=== PATIENT | female | born 1940 | race Caucasian/White ===

== ENCOUNTER → 2017-05-20 | Outpatient (CLI) | payer OTHER ==
[~2017-05-20] MED LIST: ALLERGY RELIEF180 MG PO; ALPRAZOLAM PO; AMBIEN 10 MG TA10 MG PO; ARIXTRA SQ; ASPIRIN EC81 M1 PO; BETIMOL10 ML OP; CLEOCIN HCL150 MG PO; COLACE 100 MG100 MG; COLACE100 MG PO; COZAAR 25 MG TA25 M1 PO; EVISTA PO; GLUCOPHAGE500 MG PO; HYDRALAZINE 2525 MG PO; HYDROXYZINE HCL25 M1 PO; IBUPROFEN 400400 M2 PO; IBUPROFEN 800800 M1 PO; LANTUS SC; LEVAQUIN 500 M500 M2 PO; LEVEMIR SUBQ; LISINOPRIL10 MG PO; NORCO 5-325 TA1 EACH PO; NOVALOG SQ; NOVOLOG100 UNIT/M SUBQ; NUCYNTA ER50 MG PO; OMEGA-3 FISH O1 EAC5 PO; ONDANSETRON HCL4 M2 PO; PHENERGAN 25 MG25 M1 PO; PREDNISONE 10 M10 MG PO; PREDNISONE 20 M20 M1 PO; TEARS PURE DROP15 ML OP; TOPROL XL100 MG PO; TOPROL XL25 MG PO; XANAX 0.5 MG0.5 MG PO; XARELTO15 MG PO; ZOCOR 20 MG TAB20 M1 PO; ZYRTEC10 M2 PO; [UNRECOGNIZED DRUG - OTHER]
== END ==
LOC: M.RAD 13:56
DX: Z12.31 Encounter for screening mammogram for malignant neoplasm of breast (principal); M81.0 Age-related osteoporosis without current pathological fracture; Z78.0 Asymptomatic menopausal state

== ENCOUNTER 2017-07-07 08:25 | Emergency (ER) | payer OTHER ==
[~2017-07-07] VITALS: Ht 152.4 cm; Wt 87.1 kg
[~2017-07-07 08:25] MED LIST changes: -PREDNISONE 10 M10 MG PO
[2017-07-07] MEDS ORDERED: PREDNISONE 10 M10 MG PO (09:36)
[2017-07-07 09:49] VITALS: BP 147/47
== END 2017-07-07 09:49 | disposition home or self-care (01) ==
LOC: M.ERS 08:25
DX: L50.9 Urticaria, unspecified (principal); E11.9 Type 2 diabetes mellitus without complications; Z88.1 Allergy status to other antibiotic agents; Z88.0 Allergy status to penicillin; Z91.041 Radiographic dye allergy status; Z88.8 Allergy status to other drugs, medicaments and biological substances; Z90.711 Acquired absence of uterus with remaining cervical stump; Z87.442 Personal history of urinary calculi; Z85.3 Personal history of malignant neoplasm of breast; Z79.4 Long term (current) use of insulin

== ENCOUNTER → 2017-07-16 | Outpatient (CLI) | payer OTHER ==
[~2017-07-16] MED LIST changes: +PREDNISONE 10 M10 MG PO
== END ==
LOC: M.ULTRA 10:13
DX: K80.20 Calculus of gallbladder without cholecystitis without obstruction (principal); R10.9 Unspecified abdominal pain

== ENCOUNTER 2018-02-02 11:50 | Emergency (ER) | payer OTHER ==
[~2018-02-02] VITALS: Ht 152.4 cm; Wt 89.8 kg
[2018-02-02 13:44] VITALS: BP 198/74
== END 2018-02-02 13:45 | disposition home or self-care (01) ==
LOC: M.ERS 11:50
DX: M25.511 Pain in right shoulder (principal); M79.604 Pain in right leg; W10.9XXA Fall (on) (from) unspecified stairs and steps, initial encounter; Y93.89 Activity, other specified; Y92.89 Other specified places as the place of occurrence of the external cause; Y99.8 Other external cause status; Z85.3 Personal history of malignant neoplasm of breast; E11.9 Type 2 diabetes mellitus without complications; Z96.653 Presence of artificial knee joint, bilateral; Z90.710 Acquired absence of both cervix and uterus; Z88.0 Allergy status to penicillin; Z88.1 Allergy status to other antibiotic agents; Z88.5 Allergy status to narcotic agent; Z91.041 Radiographic dye allergy status

== ENCOUNTER → 2018-06-22 | Outpatient (CLI) | payer OTHER ==
[~2018-06-22] MED LIST changes: +BACTRIM DS TAB1 EACH PO; +CORTEF 20 MG TA20 MG PO; +ZOFRAN ODT4 MG PO
== END ==
LOC: M.MRI 12:34
DX: S46.011A Strain of muscle(s) and tendon(s) of the rotator cuff of right shoulder, initial encounter (principal); S46.811A Strain of other muscles, fascia and tendons at shoulder and upper arm level, right arm, initial encounter; M19.011 Primary osteoarthritis, right shoulder; Z88.1 Allergy status to other antibiotic agents; Z88.8 Allergy status to other drugs, medicaments and biological substances; Z88.2 Allergy status to sulfonamides; Z88.0 Allergy status to penicillin; Z91.041 Radiographic dye allergy status; W19.XXXA Unspecified fall, initial encounter; Y93.89 Activity, other specified; Y92.89 Other specified places as the place of occurrence of the external cause; Y99.8 Other external cause status

== ENCOUNTER → 2019-01-12 | Outpatient (CLI) | payer OTHER ==
[~2019-01-12] VITALS: Ht 152.4 cm; Wt 85.3 kg
[~2019-01-12] MED LIST changes: +CORTEF10 MG PO; +CORTEF5 MG PO; +JARDIANCE10 MG PO; +LEVEMIR100 UNIT/1 SUBQ; +LEXAPRO 10 MG T10 M2 PO; +METFORMIN HCL500 M3 PO
[2019-01-12 10:01] LABS: HEMATOCRIT 39.8 % (37.0-47.0); HEMOGLOBIN 13.2 gm/dL (12.0-15.0); MCH 29.1 pg (26.0-34.0); MCHC 33.2 g/dL (28.0-37.0); MCV 87.7 fL (80.0-100.0); MPV 7.1 fl. (7.2-11.1); RBC 4.54 mil/uL (4.20-5.00); RDW-CV 13.9 % (10.5-14.5); WBC 5.7 thou/uL (4.0-11.0)
[2019-01-12 10:02] VITALS: BP 167/60
[2019-01-12 10:06] LABS: CALCIUM 9.1 mg/dL (8.5-10.1); CREATININE 0.8 mg/dL (0.6-1.3); POTASSIUM 3.9 mmol/L (3.5-5.1)
[2019-01-12 10:11] LABS: ALBUMIN 3.2 g/dL (3.4-5.0); TOTAL BILIRUBIN 0.4 mg/dL (<0.1-1.0); TOTAL PROTEIN 6.5 g/dL (6.4-8.2)
[2019-01-12 10:27] LABS: APTT 26.9 Seconds (25.0-31.3); PROTIME 9.8 Seconds (9.20-11.50)
[2019-01-12 11:44] VITALS: BP 141/59
[2019-01-12 11:58] VITALS: BP 144/60
[2019-01-12 12:32] VITALS: BP 146/64
== END | disposition home or self-care (01) ==
LOC: M.INT 05:22 → M.INFUS 09:00 → M.INT 09:00
PROVIDERS: Radiology Diagnostic Radiology
DX: Z45.2 Encounter for adjustment and management of vascular access device (principal); E11.9 Type 2 diabetes mellitus without complications; Z90.711 Acquired absence of uterus with remaining cervical stump; Z96.653 Presence of artificial knee joint, bilateral; Z87.442 Personal history of urinary calculi; Z85.820 Personal history of malignant melanoma of skin; Z98.890 Other specified postprocedural states; Z79.899 Other long term (current) drug therapy; Z91.040 Latex allergy status; Z88.0 Allergy status to penicillin; Z88.8 Allergy status to other drugs, medicaments and biological substances; Z85.3 Personal history of malignant neoplasm of breast; Z79.01 Long term (current) use of anticoagulants

== ENCOUNTER 2019-04-08 12:43 | Emergency (ER) | payer MEDICARE ==
[~2019-04-08] VITALS: Ht 152.4 cm; Wt 80.7 kg
[2019-04-08] MEDS ORDERED: ZOFRAN ODT4 MG SUBLING (13:30)
[2019-04-08] MEDS ORDERED: FLEXERIL PO (13:30)
[2019-04-08] MEDS ORDERED: NORCO 5-325 TA1 EAC1 PO (13:30)
[2019-04-08 15:07] VITALS: BP 135/48
== END 2019-04-08 15:13 | disposition home or self-care (01) ==
LOC: M.ERS 12:43
DX: M54.41 Lumbago with sciatica, right side (principal); E11.9 Type 2 diabetes mellitus without complications; Z85.3 Personal history of malignant neoplasm of breast; Z90.10 Acquired absence of unspecified breast and nipple; Z90.711 Acquired absence of uterus with remaining cervical stump; Z96.653 Presence of artificial knee joint, bilateral; Z87.442 Personal history of urinary calculi; Z88.0 Allergy status to penicillin; Z88.6 Allergy status to analgesic agent; Z88.8 Allergy status to other drugs, medicaments and biological substances

== ENCOUNTER → 2019-05-03 | Outpatient (CLI) | payer MEDICARE ==
[~2019-05-03] MED LIST changes: +FLEXERIL PO; +NORCO 5-325 TA1 EAC1 PO; +ZOFRAN ODT4 MG SUBLING
== END ==
LOC: M.MRI 04-15 09:15
DX: M43.16 Spondylolisthesis, lumbar region (principal); M12.88 Other specific arthropathies, not elsewhere classified, other specified site; M48.061 Spinal stenosis, lumbar region without neurogenic claudication; M51.36 Other intervertebral disc degeneration, lumbar region; M51.26 Other intervertebral disc displacement, lumbar region

== ENCOUNTER 2019-10-28 23:52 | Observation (INO) | payer MEDICARE ==
[~2019-10-28] VITALS: Ht 152.4 cm; Wt 80.7 kg
--- NOTE | ~2019-10-28 | CON ---
[address] [address] CONSULTATION Name: PASCUAL BLAIR Room: [address] M.R.#: [id number] Admission: 10/29/19 Attend Phys: Christa Denise Discharge: Date of : 40 Report #: [id number] THIS REPORT FOR: //name// cc: Marielena Manuel Linda J. DO ~ THIS REPORT FOR: //name// CC: Marielena Huang DATE OF SERVICE: 10/29/2019 CARDIOLOGY CONSULTATION HISTORY OF PRESENT ILLNESS: I was asked by Dr. Huang to see this 79-year-old white female in cardiology consultation for evaluation and treatment of chest pain. Additionally, this lady had hypertensive urgency in the ER. I believe when she first came in the ER, her blood pressure was 226/81. Subsequently, her blood pressure has come down to normal such that at 4 a.m. morning, it was 135/78. I am not sure if she has been treated for any hypertension. I believe it came down quite rapidly in the ER. She has a history of coronary artery disease and had a cardiac catheterization several years ago at this institution by Dr. Olivera and was told that she had a 50% lesion in 1 vessel. She does have essential hypertension, hypercholesterolemia, and insulin dependent diabetes mellitus. Her symptoms began yesterday during an extremely stressful day. She began having palpitations. She said she felt like her heart would skip and her heart would beat hard at times. She then yesterday evening developed chest pain that she describes as sharp, like being stabbed. It was in the left upper chest, really just below the left shoulder. The stabbings were approximately 4-5 spells. They each lasted about a second. They were sharp and stabbing. The pain was a 4-5 on a scale of 10. She came to the Emergency Room and had a second spell, which was 1 stabbing episode. It lasted a little longer about 2 seconds, but it was the same severity of 4-5 on a scale of 10. There is no radiation of the pain. There were no associated symptoms with the pain. She has not had any further symptoms. Troponins were negative x 3. A BNP was normal and her EKG was normal. PAST MEDICAL HISTORY: As described above. Additionally, she has a breast cancer with lumpectomy. She has had a partial ____. She has had bilateral knee replacement, left foot surgery with milana placement, history of kidney stones. She has had melanoma on her left leg that was resected and had a lymph node removed in the left groin and has lymphedema in that extremity. She also has a history of Heriberto disease. She is on treatment with Solu-Cortef. REVIEW OF SYSTEMS: Except as per the history of present illness and past medical history is unremarkable. Please see [place] [address] CONSULTATION Name: PASCUAL BLAIR Room: [address] Emerita Merida#: [id number] Admission: 10/29/19 Attend Phys: Christa Denise Discharge: Date of : 40 Report #: [id number] details and negatives in review of systems. Some 30 different negative points were reviewed in 14 different system categories. ALLERGIES: IODINE AND DOXYCYCLINE WELL OXYCODONE, PERCODAN, TERPHYLATE, PENICILLINS, CEFTIN. SOCIAL HISTORY: She does not smoke, drink, or use illegal drugs. She is . FAMILY HISTORY: Unremarkable. PHYSICAL EXAMINATION: GENERAL: She presents as a well-developed, well-nourished white female, in no acute distress. VITAL SIGNS: Her pulse is 70 and regular, blood pressure is 135/78, respirations 15 and regular, and temperature is 97.8. HEENT: Her head was atraumatic. Eyes clear. NECK: Supple. There is no jugular venous distention or hepatojugular reflux. Thyroid is not enlarged. There is no adenopathy. SKIN: Warm and dry. Mucous membranes are moist. LUNGS: Clear to auscultation and percussion. HEART: Revealed normal first and second heart sounds. There is soft S4. There is no S3. There are no murmurs, rubs, thrills, heaves, or gallops. PMI is nondisplaced. ABDOMEN: Soft, flat, and nontender. No palpable masses, no organomegaly. EXTREMITIES: Reveal no cyanosis or clubbing. There was 1+ lymphedema in the left lower extremity. NEUROLOGIC: The patient mentated normally, talked normally, and moved all extremities normally. LABORATORY DATA: Her EKG showed normal sinus rhythm and is a normal EKG. Her chest x-ray showed prominence of the ascending aorta and right mediastinum with aneurysmal dilatation or tortuosity of the aorta not excluded. There was a right infrahilar mass or infiltrate. There was some stranding infiltrate in the mid lung field. RECOMMENDATION: I will get a nuclear stress test and an echocardiogram. I would also get a CT of her chest with contrast and a CTA of the chest. Thank you very much for asking me to see the patient. If there are any questions, please feel free to contact me. By: [id number] [id number]. Darian Pierce MD, FACC /nt
[2019-10-29] VITALS (7 sets, daily range): BP systolic 126–226; BP diastolic 57–81
[2019-10-29 00:44] LABS: ABSOLUTE EOSINOPHILS 0.1 thou/uL (0.0-0.7); ABSOLUTE LYMPHOCYTES 2.9 thou/uL (0.8-5.3); ABSOLUTE MONOCYTES 0.6 thou/uL (0.0-1.2); ABSOLUTE NEUTROPHILS 4.4 thou/uL (1.6-8.1); BASOPHILS 0.5 %; EOSINOPHILS 1.7 %; HEMATOCRIT 38.4 % (37.0-47.0); HEMOGLOBIN 13.1 gm/dL (12.0-15.0); LYMPHOCYTES 36.1 %; MCH 29.7 pg (26.0-34.0); MCHC 34.2 g/dL (28.0-37.0); MCV 86.9 fL (80.0-100.0); MONOCYTES 7.2 %; MPV 7.7 fl. (7.2-11.1); NUCLEATED RBCS 0 /100WBC; PLATELET COUNT* 206 thou/uL (150-400); POLYS 54.5 %; RBC 4.41 mil/uL (4.20-5.00); RDW-CV 13.6 % (10.5-14.5)
[2019-10-29 00:52] LABS: CALCIUM 8.5 mg/dL (8.5-10.1); CREATININE 0.8 mg/dL (0.6-1.3); POTASSIUM 3.8 mmol/L (3.5-5.1)
[2019-10-29 01:03] LABS: ALBUMIN 3.4 g/dL (3.4-5.0); MAGNESIUM 1.5 mg/dL (1.8-2.4); TOTAL BILIRUBIN 0.4 mg/dL (<0.1-1.0); TOTAL PROTEIN 6.6 g/dL (6.4-8.2)
[2019-10-29] MEDS ORDERED: CORTEF5 MG PO (06:17)
[2019-10-29] MEDS ORDERED: CORTEF10 MG PO (06:18)
[2019-10-29] MEDS ORDERED: LEVEMIR100 UNIT/1 SUBQ ×2 (06:21)
[2019-10-29] MEDS ORDERED: IBUPROFEN 400400 M1 PO (06:25)
[2019-10-29] MEDS ORDERED: ALLEGRA ALLERG180 MG PO (06:26)
[2019-10-30] VITALS: BP 116/60
[2019-10-30 04:00] VITALS: BP 147/73
[2019-10-30 08:00] VITALS: BP 172/79
[2019-10-30 13:50] VITALS: BP 151/73
[2019-10-30 20:24] VITALS: BP 153/60
[2019-10-31] VITALS: BP 152/68
[2019-10-31 04:00] VITALS: BP 134/68
[2019-10-31 08:00] VITALS: BP 208/85
[2019-10-31] MEDS ORDERED: LEVAQUIN 500 M500 M3 PO (08:58)
[2019-10-31] MEDS ORDERED: ASA81BEC PO (08:58)
--- NOTE | 2019-10-31 13:43 | 2DMMODE ---
[place] [address] 2 D/M-MODE ECHOCARDIOGRAM Name: PASCUAL BLAIR Room: [address] TejalRBetito#: [id number] Admission: 10/29/19 Attend Phys: Marcos Huang Discharge: Date of : 40 Date of Service: 10/31/19 1343 Report #: [id number] THIS REPORT FOR: cc: Marielena Manuel,Marielena Schwarz,Aramis Toure MD [facility] ~ APPROVED REPORT Study performed: 10/31/2019 12:18:32 EXAM: Comprehensive 2D, Doppler, and color-flow Echocardiogram Patient Location: In-Patient Room #: 209 Status: routine BSA: 1.78 HR: 56 bpm BP: 134/68 mmHg Rhythm: NSR Other Information Study Quality: Good Indications Chest Pain Hypertension/HDD 2D Dimensions IVSd: 11.28 (7-11mm) LVOT Diam: 18.76 (18-24mm) LVDd: 47.30 mm PWd: 10.68 (7-11mm) Ascending Ao: 30.17 (22-36mm) LVDs: 30.02 (25-40mm) Aortic Root: 30.03 mm Volumes Left Atrial Volume (Systole) LA ESV Index: 31.80 mL/m2 Aortic Valve AoV Peak Guillaume.: 1.23 m/s AO Peak Gr.: 6.04 mmHg LVOT Max P.47 mmHg AO Mean Gr.: 3.14 mmHg LVOT Mean P.78 mmHg LVOT Max V: 1.06 m/s AO V2 VTI: 31.73 cm LVOT Mean V: 0.60 m/s ISHMAEL (VTI): 2.43 cm2 LVOT V1 VTI: 27.90 [place] [address] 2 D/M-MODE ECHOCARDIOGRAM Name: PASCUAL BLAIR Room: [address] MBetitoR.#: [id number] Admission: 10/29/19 Attend Phys: Marcos Huang Discharge: Date of : 40 Date of Service: 10/31/19 1343 Report #: [id number] Mitral Valve E/A Ratio: 1.08 MV Decel. Time: 155.40 ms MV E Max Guillaume.: 0.80 m/s MV PHT: 45.06 ms MVA (PHT): 4.88 cm2 TDI E/Lateral E': 8.89 E/Medial E': 10.00 Medial E' Guillaume.: 0.08 m/s Lateral E' Guillaume.: 0.09 m/s Pulmonary Valve PV Peak Guillaume.: 0.70 m/s PV Peak Gr.: 1.98 mmHg Left Ventricle The left ventricle is normal size. There is normal LV segmental wall motion. There is normal left ventricular wall thickness. Left ventricular systolic function is normal. The left ventricular ejection fraction is within the normal range. LVEF is 55-60%. Grade I - abnormal relaxation pattern. Right Ventricle The right ventricle is normal size. The right ventricular systolic function is normal. Atria Left atrium is mildly dilated. The right atrium size is normal. Aortic Valve The aortic valve is normal in structure. No aortic regurgitation is present. There is no aortic valvular stenosis. Mitral Valve The mitral valve is normal in structure. Mild mitral regurgitation. No evidence of mitral valve stenosis. Tricuspid Valve The tricuspid valve is normal in structure. Trace tricuspid regurgitation. Unable to assess PA pressure. Pulmonic Valve The pulmonary valve is normal in structure. Mild [place] [address] 2 D/M-MODE ECHOCARDIOGRAM Name: PASCUAL BLAIR Room: [address]#: [id number] Admission: 10/29/19 Attend Phys: Marcos Huang Discharge: Date of : 40 Date of Service: 10/31/19 1343 Report #: [id number] Great Vessels The aortic root is normal in size. IVC is normal in size and collapses >50% with inspiration. Pericardium There is no pericardial effusion. <Conclusion> The left ventricle is normal size. There is normal left ventricular wall thickness. Left ventricular systolic function is normal. The left ventricular ejection fraction is within the normal range. LVEF is 55-60%. Grade I - abnormal relaxation pattern. The right ventricle is normal size. Left atrium is mildly dilated. The right atrium size is normal. The aortic valve is normal in structure. The mitral valve is normal in structure. Mild mitral regurgitation. The tricuspid valve is normal in structure. IVC is normal in size and collapses >50% with inspiration. There is no pericardial effusion. There is normal LV segmental wall motion. <ELECTRONICALLY SIGNED> By: Aramis Trinidad MD, FACC 10/31/19 1343 1343 1343 Aramis Trinidad MD, FACC /INF
[2019-10-31 14:44] VITALS: BP 167/69
[2019-10-31 16:28] VITALS: BP 171/71
--- NOTE | 2019-10-31 17:59 | CARDNUC ---
[place] [id number] CARDIAC NUCLEAR IMAGING REPORT Name: PASCUAL BLAIR Room: [address] M.R.#: [id number] Admission: 10/29/19 Attend Phys: Marcos Huang Discharge: Date of : 40 Date of Service: 10/31/19 1759 Report #: [id number] THIS REPORT FOR: cc: Marielena Manuel,Marielena Villeda,Kimani Andrade MD [facility] ~ APPROVED REPORT Imaging Protocol: Stress Tc-99mm Only Study performed: 10/29/2019 12:00:00 Indication: Chest pain, Palpitations. Patient Location: In-Patient Room #: 209 Stress Tech: Taylor Hussein Stress Nurse: Yvrose Jim RN NM Tech:BRYANT Malhotra Ht: 5 ft 0 in Wt: 178 lbs BSA: 1.78 m2 BMI: 34.75 Medical History Medical History: Chest pain, palpitations, catherization, DM-insulin, HTN, HLD, Bilateral Knee Replacement, Left foot surgery with milana placement, CAD non obstructive, LE edema, Neuropathy. Medications: ASA 325 Mg, Cozaar, Metoprolol, Atorvastatin. Allergies: Oxycodone HCl, Cefuroxime axetil, Oxycodone Terephthalate, Penicillins, Iodine, Doxycycline. Cardiac Risk Factors: Age, Diabetes (insulin), HTN, Hyperlipidemia, palpitations. Previous Cardiac Procedures: Catherization. Pretest Chest Pain Characteristics: No chest pain Exercise History: Indeterminate Physical Disabilities: Bilateral Knee Replacement, Left foot surgery with milana, LE edema, neuropathy. Meds Held (24 hrs): Metoprolol. Pharmacologic Stress Pharmacologic stress test was performed by injecting Regadenoson 0.4 mg IV push over 10-15 seconds immediately followed by the intravenous injection of 30.0 mCi of Tc-99m Sestamibi. Time of stress injection: 1100 Date: 10/31/2019 Administration Route: IV Administration Site: [place] [address] CARDIAC NUCLEAR IMAGING REPORT Name: PASCUAL BLAIR [address] [id number] Admission: 10/29/19 Attend Phys: Marcos Huang Discharge: Date of : 40 Date of Service: 10/31/19 1759 Report #: [id number] Gated Stress SPECT was performed 40 minutes after stress injection. The images were gated to evaluate regional wall motion and calculate left ventricular ejection fraction. Prone imaging was performed. Stress Test Details Stress Test: Pharmacologic stress testing performed using 0.4 mg of regadenoson per 5 mL given IV over 10 seconds. Reason for pharmacologic stress test: Bilateral Knee Replacement, Left foot surgery with milana, LE edema, neuropathy.. HR Max Heart Rate (APMHR): 141 bpm Resting HR: 57 bpm Target HR (85% APMHR): 119 bpm Max HR Achieved: 96 bpm % of APMHR: 68 Recovery HR: 83 bpm BP Resting BP: 193/90 mmHg Max BP: 177/80 mmHg Recovery BP: 194/87 mmHg ECG Resting ECG: Sinus Rhythm Stress ECG: Sinus Rhythm ST Change: None Arrhythmia: None Recovery ECG: Sinus Rhythm Recovery ST Change: None Recovery Arrhythmia: None Clinical Reason for Termination: Completed protocol Stress Symptoms: Flushed/warmth, Stomach discomfort, Labored Breathing, Headache. Exercise duration: 00 min 00 sec Exercise capacity: 1.00 METs The patient tolerated Lexiscan infusion without significant cardiac symptom. Nurse Comments A 79 year old female inpatient presented for a sitting Lexiscan r/t chest pain and palpitations. Test well tolerated. Recovery unremarkable. Patient was escorted by staff via wheelchair to Nuclear Medicine for imaging. Patient was stable and stated [place] [id number] CARDIAC NUCLEAR IMAGING REPORT Name: JOHNNIEOTILIORODRÍGUEZNEAL PATRICIO Room: [address]#: [id number] Admission: 10/29/19 Attend Phys: Marcos Huang Discharge: Date of : 40 Date of Service: 10/31/19 1759 Report #: [id number] Stress ECG Conclusion The baseline twelve-lead EKG shows sinus rhythm without significant ST segment abnormality. EKGs obtained during a post Lexiscan infusion shows sinus rhythm with no significant ST segment changes when compared to baseline. There were no stress-induced arrhythmias. Study Quality Study: Good Artifact: No artifact Study Data Post stress, the left ventricular ejection was 63%.. Perfusion Perfusion images obtained post Lexiscan stress showed uniform uptake of the radioisotope throughout the myocardium. There were no defects to suggest infarct or ischemia. Wall Motion Normal left ventricular wall motion. Nuclear Conclusion ECG Findings: negative for ischemia Clinical Findings: negative for ischemia Nuclear Findings: negative for ischemia Exercise Capacity: not assessed Left Ventricular Function: normal Risk Study: low Myocardial perfusion images show no defect to suggest infarct or ischemia. Left ventricular systolic function appears normal on gated studies. This is a low risk study. <Conclusion> The baseline twelve-lead EKG shows sinus rhythm without significant ST segment abnormality. EKGs obtained during a post Lexiscan infusion shows sinus rhythm with no significant ST segment changes when compared to baseline. There were no stress-induced arrhythmias. <ELECTRONICALLY SIGNED> By: Kimani Bowser MD, FACC 10/31/191758 58 58 Kimani Bowser MD, FACC /INF
[2019-10-31 18:44] VITALS: BP 171/71
--- NOTE | 2019-11-01 14:25 | EKG ---
[place] [address] ELECTROCARDIOGRAM REPORT Name: PASCUAL BLAIR Room: [address]#: [id number] Admission: 10/29/19 Attend Phys: Marcos Huang Discharge: 10/31/19 Date of : 40 Date of Service: 10/28/19 2357 Report #: [id number] THIS REPORT FOR: //name// [facility] ED Test Date: 2019-10-28 Test Time: 23:57:08 Pat Name: PASCUAL BLAIR Department: Room: [facility] Gender: F Developer Designer: : 1940 Requested By: Iron Farias Order Number: [id number] MD: Aramis Trinidad Measurements Intervals [place] Rate: 61 P: 46 MN: 175 QRS: 26 QRSD: 94 T: 86 QT: 608 QTc: 613 Interpretive Statements Sinus rhythm Probable left atrial enlargement Borderline T abnormalities, anterior leads Prolonged QT interval Compared to ECG 05/02/2018 20:31:00 Prolonged QT interval now present T-wave abnormality still present Electronically Signed On 11-01-2019 14:24:57 CDT by Aramis Trinidad [email or web address] <ELECTRONICALLY SIGNED> By: Aramis Trinidad MD, [facility] 11/01/19 1424 2357 2357 Aramis Trinidad MD, [facility] /EPI
== END 2019-10-31 21:00 | disposition home or self-care (01) ==
LOC: M.ERS 23:52 → M.2W 10-29 01:47 → M.TBA-ER 10-29 01:47 → M.2W 10-29 03:57
PROVIDERS: Emergency Medicine Emergency Medical Services; ADMIT Internal Medicine; ATTEND Internal Medicine
DX: Z03.818 Encounter for observation for suspected exposure to other biological agents ruled out (principal); R07.89 Other chest pain; R00.2 Palpitations; E11.9 Type 2 diabetes mellitus without complications; E27.1 Primary adrenocortical insufficiency; Z85.3 Personal history of malignant neoplasm of breast; Z85.820 Personal history of malignant melanoma of skin; Z79.4 Long term (current) use of insulin; Z79.899 Other long term (current) drug therapy